=== PATIENT | male | born 1970 | race Two or more races ===

== ENCOUNTER 2025-03-06 22:03 | Emergency (ER) | payer OTHER ==
[~2025-03-06] VITALS: Ht 177.8 cm; Wt 70.3 kg
[2025-03-06 23:52] LABS: PLATELET COUNT (AUTO) 493 K/uL (150-450); RED BLOOD CELL COUNT(AUTO) 4.29 MIL/uL (4.5-6.0); RED CELL DISTRIBUTION WIDTH 17.7 % (11.5-15.0); WHITE BLOOD COUNT (AUTO) 9.0 K/uL (4.3-11.0)
[2025-03-06 23:59] LABS: CALCIUM, SERUM 8.9 mg/dL (8.5-10.1); CREATININE 1.3 mg/dL (0.6-1.3); SODIUM SERUM 138 mmol/L (136-145); UREA NITROGEN, BLOOD 25 mg/dL (7-18)
[2025-03-07 00:05] LABS: ALCOHOL, BLOOD 97 mg/dL (0-10); ASPARTATE AMINOTRANSFERASE 19 U/L (15-37); TOTAL PROTEIN, SERUM 8.9 g/dL (6.4-8.2)
[2025-03-07 00:44] LABS: APPEARANCE,URINE CLEAR (CLEAR); BLOOD, URINE NEGATIVE Ery/uL (NEGATIVE); LEUKOCYTE ESTERASE ,URINE NEGATIVE (NEGATIVE); NITRITE, URINE NEGATIVE (NEGATIVE); UGLUCOSE NEGATIVE (NEGATIVE)
[2025-03-07 00:55] LABS: AMPHETAMINE, URINE POSITIVE (NEGATIVE); BARBITURATE, URINE NEGATIVE (NEGATIVE); BENZODIAZEPINE, URINE POSITIVE (NEGATIVE); CANNABINOID, URINE NEGATIVE (NEGATIVE); COCCAINE, URINE NEGATIVE (NEGATIVE); OPIATE, URINE POSITIVE (NEGATIVE)
[2025-03-07] MEDS ORDERED: NALOXONE HCL 0.4 MG/ML AMPUL ONE (01:36)
[2025-03-07] MEDS ORDERED: ONDANSETRON HCL/PF 4 MG/2 ML VIAL ONE (01:36)
[2025-03-07] MEDS: NALOXONE HCL 0.4 MG/ML AMPUL IV ONE (01:37)
[2025-03-07] MEDS: ONDANSETRON HCL/PF 4 MG/2 ML VIAL IV ONE (01:37)
[2025-03-07] MEDS ORDERED: NALO4SPR BNOSTRILS (05:33)
[2025-03-07 19:23] VITALS: BP 139/74; TEMP 98.9; O2SAT 99
== END 2025-03-07 19:28 | disposition home or self-care (01) ==
LOC: EDBD 22:05 → ER 22:05
DX: F19.10 Other psychoactive substance abuse, uncomplicated (principal); Z79.899 Other long term (current) drug therapy; R51.9 Headache, unspecified
CPT/HCPCS: 99285; 85025; 80048; 80076; 81003; 36415; 80143; 80320; 80307; 96374; 96375; 70450; J2312; J2405; G0480